=== PATIENT | male | born 1950 | race Caucasian/White ===

== ENCOUNTER 2021-09-13 08:22 | Emergency (ER) | payer OTHER, MEDICARE ==
[~2021-09-13 08:22] MED LIST: PERCOCET 5/325 T1 EA PO
== END 2021-09-13 10:22 | disposition home or self-care (01) ==
LOC: ER1 08:22
DX: M25.511 Pain in right shoulder (principal); M54.50 Low back pain, unspecified; E11.9 Type 2 diabetes mellitus without complications; I10 Essential (primary) hypertension; W01.0XXA Fall on same level from slipping, tripping and stumbling without subsequent striking against object, initial encounter; Y92.009 Unspecified place in unspecified non-institutional (private) residence as the place of occurrence of the external cause
CPT/HCPCS: 72100; 73030; 73564; 99283